=== PATIENT | male | born 1955 | race Caucasian/White ===

== ENCOUNTER 2024-09-23 06:31 | Inpatient (IN) | payer OTHER, SELFPAY ==
[2024-09-22 23:47] VITALS: BP 97/55
[2024-09-23] VITALS (46 sets, daily range): BP systolic 77–115; BP diastolic 47–84; BMI 22.7; BMI 22.9
[2024-09-23 00:30] LABS: % Basophils 0.1 % (0-2); % Eosinophils 0.6 % (0-6); % Immature Granulocytes 1.3 % (0-0.5); % Lymphocytes 0.7 % (20.5-51.1); % Monocytes 3.9 % (1.7-9.3); % Neutrophils 93.4 % (42.2-75.2); Absolute Eosinophils 0.1 10^3/uL (0-0.7); Absolute Immature Granulocytes 0.2 10^3/uL (0-0.05); Absolute Lymphocytes 0.1 10^3/uL (1.2-3.4); Absolute Monocytes 0.5 10^3/uL (0.1-0.6); Absolute Neutrophils 12.8 10^3/uL (1.4-6.5); Hematocrit 39.8 % (39.0-52.0); Hemoglobin 13.9 g/dL (13.0-18.0); Mean Corp Hgb Conc. 34.9 g/dL (33.0-37.0); Mean Corpuscular Hgb 31.8 pg (27.0-31.0); Mean Corpuscular Volume 91.1 fL (80.0-94.0); Mean Platelet Volume 9.9 fL (7.4-10.4); Nucleated Red Blood Cells % 0 % (-); Platelet Count 201 10^3/uL (130-400); Red Blood Cell Count 4.37 10^6/uL (4.70-6.10); Red Cell Dist. Width 13.1 % (11.5-14.5); White Blood Cell Count 13.8 10^3/uL (4.8-10.8)
[2024-09-23 00:34] LABS: ALT (SGPT) 39 U/L (0-50); AST (SGOT) 35 U/L (17-59); Alkaline Phosphatase 64 U/L (38-126); Blood Urea Nitrogen 41 mg/dl (9-20); Calcium 9.8 mg/dl (8.4-10.2); Carbon Dioxide 27 mmol/L (22-30); Chloride 100 mmol/L (98-107); Glucose 148 mg/dl (70-99); Lactic Acid 1.9 mmol/L (0.7-2.0); Sodium 134 mmol/L (135-145); Total Bilirubin 0.9 mg/dl (0.2-1.3); Total Protein 6.3 g/dl (6.3-8.2)
--- NOTE | 2024-09-23 01:45 | ED.GENMED ---
History of Present Illness
General
Chief Complaint: Fever
Source: patient and spouse
Exam Limitations: none
Time Seen by Provider: 09/23/24 01:19
Nursing documentation reviewed up to this point in time: agreed with
History of Present Illness
History of Present Illness:
69-year-old male with a past medical history of melanoma presents to the emergency department with his for evaluation of fever, nausea. Patient has significant recent history�he was diagnosed with melanoma in the left thigh and required
resection as well as lymph node sampling in the left groin�this procedure was done with surgical oncology at [facility] on 06/22/2024. He was started on Keytruda has completed 3 cycles, last treatment was 09/12/2024--he has generally been tolerating
this well without significant side effects. Unfortunately his postoperative course was complicated by cellulitis and abscess/seroma in the left thigh where he had resection of the melanoma. He was admitted at [facility] 09/01/2024 treated with IV
antibiotics and had incision and drainage; he had subsequent reaccumulation and a drain was placed 09/03/2024 and he was discharged with 7-day course of antibiotics which she completed. Drain has been putting out serosanguineous but no purulence and
remains in place today. He has not had significant pain or swelling in this area.
He presents today to the emergency room for fever and nausea as described above. He says that his symptoms started this morning at around 11 AM and have been constant throughout the day. He reports fever and chills throughout the day. He says he
has had nausea and poor appetite but no vomiting. No diarrhea. He has not had any abdominal pain. He says he has enlarged prostate and chronic urinary frequency but no acute change, no dysuria, no dark urine. He has had some myalgias and
arthralgias today. He says that he has had some congestion and mild postnasal drip but no significant cough, no sore throat. He denies any chest pain. He says he had some shortness of breath after hospitalization attributed to deconditioning. He
says that initially he went to the emergency room at [facility] but he says that the wait was very long and there was no place he could lay down while waiting. He says he started to get some pain in the back of his head which he says is very common
he has a long history of occipital neuralgia which tends to act up in situations like this. He left the emergency room at [facility] and decided to come here for evaluation.
Review of Systems
Review of Systems
All Other Systems: ROS reviewed and negative except as documented in HPI and ROS
Constitutional: Reports fever, fatigue and chills
EENT: Reports other (Congestion/postnasal drip); Denies sore throat
Respiratory: Denies cough or trouble breathing
Cardiac: Denies chest pain or palpitations
ABD/GI: Reports nausea; Denies abdominal pain, vomiting or diarrhea
: Denies dysuria or flank pain
Musculoskeletal: Reports muscle pain (Myalgias)
Neurological: Reports headache; Denies dizzy
Phy Exam
Physical Exam
Physical Exam:
General: Awake, alert, oriented x3; no acute distress
Head: Normocephalic, atraumatic
Eyes: Conjunctiva normal, sclera anicteric
Throat: Airway intact, handling secretions
Neck: Trachea midline, supple without meningismus
Lungs: Clear to auscultation bilaterally, no wheezing, rales, rhonchi
Heart: Regular rate and rhythm, no murmurs, gallops, or rubs
Abd: Soft, non distended, nontender
Neuro: No gross deficits
Skin: Patient has surgical scar left medial thigh as well as in the left inguinal region; he has a drain in place near the left thigh surgical site output serosanguineous; area near drain is indurated and firm, not significantly erythematous and
minimally tender to the touch; no crepitus
Extremities: Warm and well-perfused
Scores
Heart Failure Risk
Heart Failure Risk Score: Not Applicable
Heart Score for Chest Pain Patients
STEMI patient?: Not applicable
Withdrawal Assessment of Alcohol
Withdrawal Assessment Completed?: Not applicable
Sepsis
Sepsis Screening
Sepsis Assessment: Sepsis
Sepsis Screen
Sepsis Screen: Sepsis
Date: 09/23/24
Time: 03:10
Course
Orders/Labs/Results
Orders:
Orders
09/22/24 23:56
Complete Blood Count/With Diff Urgent
Comprehensive Metabolic Panel Urgent
Lactic Acid Q4H
Comment: ON ICE, CANCEL 2ND ORDER IF FIRST LACTIC ACID LEVEL <2
Blood Culture Q20M
CHASE Source: Blood/Venous
Specimen Description:
Comment: Urgent from separate sites. If patient screens positive for possible sepsis
09/23/24 01:40
CT Lower Ext W/iv Cont Lt Urgent
Comment:
Reason For Exam: fever, recent left thigh abscess and drain
09/23/24 01:41
Urinalysis Reflex To Culture Urgent
CR Chest - 2 Views Urgent
Comment:
Reason For Exam: fever
09/23/24 01:44
0.9% Sodium Chloride 1000 ml [Nss] 1,000 ml IV BOLUS
Ibuprofen [Motrin] 400 mg PO NOW STA
Ondansetron Injectable [Zofran] 4 mg IV NOW STA
09/23/24 02:26
COVID-19 Antigen Urgent
Source: Nasal Swab
Lactic Acid Q4H
Comment: ON ICE, CANCEL 2ND ORDER IF FIRST LACTIC ACID LEVEL <2
Blood Culture Q20M
CHASE Source: Blood/Venous
Specimen Description:
Comment: Urgent from separate sites. If patient screens positive for possible sepsis
Influenza A+B Rapid Molecular Urgent
CHASE Source: Nasal Swab
Specimen Description:
09/23/24 03:09
*Vancomycin 2,000 mg Loading Dose (consider for >/= 70 kg) Vancomycin [Vancocin] 2,000 mg 0.9% Sodium Chloride 500 ml [Nss] 500 ml IV NOW
Zosyn 3.375 grams IVPB NOW Piperacillin/Tazo 3.375 Gram [Zosyn] 3.375 gram in 50 ml IV NOW
Abnormal Lab Results
09/23/24
00:09
WBC 13.8 H 10^3/uL
(4.8-10.8)
RBC 4.37 L 10^6/uL
(4.70-6.10)
MCH 31.8 H pg
(27.0-31.0)
Abs Immat Gran (auto) 0.2 H 10^3/uL
(0-0.05)
Absolute Neuts (auto) 12.8 H 10^3/uL
(1.4-6.5)
Absolute Lymphs (auto) 0.1 L 10^3/uL
(1.2-3.4)
Immature Gran % 1.3 H %
(0-0.5)
Neutrophils % 93.4 H %
(42.2-75.2)
Lymphocytes % 0.7 L %
(20.5-51.1)
Sodium 134 L mmol/L
(135-145)
BUN 41 H mg/dl
(9-20)
Creatinine 1.5 H mg/dL
(0.7-1.3)
Glucose 148 H mg/dl
(70-99)
09/23/24 00:09
09/23/24 00:09
Vital Signs
Initial and Last Documented VS:
Initial Vital Signs
Temp Pulse Resp BP Pulse Ox
38.3 C H 88 24 97/55 99
09/22/24 23:47 09/22/24 23:47 09/22/24 23:47 09/22/24 23:47 09/22/24 23:47
Last Documented Vital Signs
Temp Pulse Resp BP Pulse Ox
38.3 C H 73 16 96/67 96
09/22/24 23:47 09/23/24 02:30 09/23/24 02:30 09/23/24 02:09 09/23/24 02:30
MDM/Problems Addressed
Differential Diagnosis Includes:
Fever: Viral syndrome (flu, COVID, etc), pneumonia, UTI, bacteremia, recurrent thigh/postsurgical infection
MDM/Problems Addressed:
69-year-old male with significant recent history as documented presents for evaluation of fever and chills associated with some nausea today as described above. Vitals and exam as above. Will place IV send labs including CBC CMP, lactate and blood
cultures. Swab for COVID and flu. Check urinalysis. Check chest x-ray. Will check a CT of the left leg to evaluate for drain position and recurrent abscess. Will treat fever and provide fluids. Zofran for nausea. Reassess after the above.
Labs reviewed: CBC shows leukocytosis to 13.8. CMP shows creatinine of 1.5�no baseline available for comparison. Lactate less than 2. COVID and flu negative. Chest x-ray reviewed by me shows no pneumonia. CT extremity pending but I think at
this point with multiple SIRS criteria in an immunocompromised patient will cover with broad-spectrum antibiotics admit pending blood cultures�concern for recurrent left thigh infection, also at risk for bacteremia with recent issues. Case
discussed with hospitalist for admission.
Chronic conditions affecting care:
Melanoma
*Radiology
Radiology exam reviewed: preliminary read by ED provider and radiology read reviewed
*Pulse Oximetry
Patient hypoxic: no
*Critical Care Note
Total Time (30-74mins, 75-104mins- exclusive of procedures): Not Applicable
Data Reviewed
Source: patient and spouse
Patient Management
Discussion with other providers: Hospitalist (Discussed with hospitalist)
Escalation/DeEscalation of care consider admission/obs:
Admission indicated
ED Attending Note
-
Portions of this chart may have been created with voice recognition software.� Occasional wrong word or��sound alike� substitutions may have occurred due to the inherent limitations of voice recognition software.
Discharge Plan
Departure
Patient Disposition: Admit
Date of Disposition: 09/23/24
Time of Disposition: 03:11
Admit to doctor: Tigre
Presentation/result/management discussed w/ accepting MD/DO: Hospitalist
Discharge Problem:
Fever, Cellulitis
Referrals:
NONE,* [Family Provider] -
Interventions
Interventions:
*Risk Screen - Suicide Last Done: 09/23/24 01:20
*General Assessment Last Done: 09/23/24 01:20
*Neglect/Abuse Screening Last Done: 09/23/24 01:20
*ED- Fall Risk Assessment Last Done: 09/23/24 01:20
*ED COVID-19 Vaccine History Last Done: 09/23/24 01:20
ED- Neurological Assessment Last Done: 09/23/24 01:20
ED-Skin Assessment Last Done: 09/23/24 01:20
Discharge Date and Time
Print Language: GEORGIAN
[2024-09-23] MEDS: MOTRIN 400 MG PO (01:56)
[2024-09-23] MEDS: ZOFRAN 4 MG IV ×2 (02:04→10:41)
[2024-09-23] MEDS: NSS 1000 IV ×2 (02:04→03:40)
[2024-09-23 02:56] LABS: Lactic Acid 1.4 mmol/L (0.7-2.0)
[2024-09-23 03:03] LABS: COVID-19 Antigen Negative (Negative)
[2024-09-23] MEDS: ZOSYN 50 IV ×4 (03:36→22:02)
[2024-09-23] MEDS: VANCOCIN 540 MG IV (04:50)
[2024-09-23 05:09] LABS: Urine Bilirubin Negative (Negative); Urine Color Yellow; Urine Glucose Negative (Negative); Urine Ketone Negative (Negative); Urine Leukocyte Negative (Negative); Urine Nitrite Negative (Negative); Urine Occult Blood Negative (Negative); Urine Urobilinogen Negative (Neg - 1+)
[2024-09-23 05:10] LABS: Urine Albumin Trace (Neg - Trace); Urine Character Clear (Clear)
--- NOTE | 2024-09-23 05:15 | HPS.HSE ---
Family Physician
-
Family Physician: * NONE
Chief Complaint
-
Fever
History of Present Illness
This is a 69-year-old with past medical history significant for skin melanoma status post extensive resection in June complicated by development of seroma complicated by recent cellulitis with infection and status post drainage placement who
presents to the emergency department now weight fever and chills and rigors.
Patient reported that he was last hospitalized for drainage placement about 16 days ago. Drain was placed and the patient was draining serosanguineous fluid. He has been draining about 20 cc of serosanguineous fluid since then. He has been
feeling well up until about 2 days ago when he had an episode of fever and chills. He took a dose of Tylenol and had complete resolution of symptoms. He saw his physician at [facility] today who evaluated him and said everything looks good but if
he had recurrent of the fevers and chills that she will head to the emergency department.
Patient reported that the evening prior to come to the ED he started having fevers and chills which was more persistent and had nausea. He had no vomiting. He denies any cough or shortness of breath. He denies any neck pain or stiffness. Patient
was was seen at [facility] emergency department but due to the prolonged wait there he brought himself to the [facility].
In the ED he had a temp of 101, blood pressure was initially 90s over 68 but trended down to 80 systolic pulse in the 70s. He was satting 96% on room air. White count was 13.8 with normal platelet and hemoglobin. Electrolytes were stable with a
sodium of 134 and potassium of 5.0 with a normal bicarb and chloride. BUN and creatinine were elevated at 41 and 1.5 respectively. Glucose was normal. Chest x-ray shows no acute infiltrates. Viral panel was negative. UA is negative.
Patient had a CT of the left lower extremity showing Collection containing fluid and gas overlying the left sartorius at the mid thigh level measuring about 5.6 x 2.4 x 10 cm, has a drainage catheter looped in 8 mostly collection is collapsed around
the loop, there is mild subcutaneous fat edema and skin thickening overlying the collection suspicious for cellulitis.
Medical History
Past Medical History
Past Medical History: Reports Cancer (Stage III melanoma status post biopsy and skin lesion excision with lymph node biopsy currently on Keytruda)
Past Surgical History: Reports Other (Skin cancer resection)
Social History
Tobacco: Non-smoker
Alcohol: Occasional
Drug: None
Personal:
Living: With Family
Employment: Retired
Family History
Family History: Not pertinent
Allergies / Home Medications
Allergies reflects when Allergies were last updated in [facility] [facility] [employer]
Home Medications with original date entered in [facility] [facility] [employer] [facility]
Allergy/Medication List:
Allergies
Allergy/AdvReac Type Severity Reaction Status Date / Time
No Known Allergies Allergy Unverified 09/22/24 23:47
No home medications
Review of Systems
-
History Source: Family
Constitutional: Reports Fever and Chills
EENT: Reports No Symptoms
Respiratory: Reports No Symptoms
Cardiac: Reports No Symptoms
Abdomen/GI: Reports Nausea
: Reports No Symptoms
Musculoskeletal: Reports No Symptoms
Skin: Reports No Symptoms
Neurological: Reports No Symptoms
Endocrine: Reports No Symptoms
Hematologic/Lymphatic: Reports No Symptoms
Psych: Reports No Symptoms
Physical Exam
Vital Signs
Vital Signs
Temp Pulse Resp BP Pulse Ox
98.3 F 62 14 96/67 100
09/23/24 04:53 09/23/24 04:30 09/23/24 04:30 09/23/24 02:09 09/23/24 04:30
Physical Exam
General: Well Developed, Well Nourished, Comfortable and Conversant
HEENT: NormoCephalic, Anicteric, Moist mucous membranes and Atraumatic
Respiratory: Clear
Cardiac: S1/S2 and Regular Rhythm
Breast: Deferred by me
GI: Soft, Non Tender, Non Distended and Normal Bowel Sounds
Rectal: Deferred by Provider
Musculoskeletal: Clubbing
Skin: Other (Left medial thigh JUSTYN drain site C/D/I. No erythema. No obvious fluid collection seen superficially. NO TTP)
Neuro: AO x 3, No Motor Deficits and Nonfocal/grossly intact
Hematologic/Lymphatic: No Lymphadenopathy
Psych: Calm
Laboratory Results
-
09/23/24 00:09
09/23/24 00:09
Laboratory Results
Lactic Acid 1.4 mmol/L (0.7-2.0) 09/23/24 02:26
Total Bilirubin 0.9 mg/dl (0.2-1.3) 09/23/24 00:09
AST 35 U/L (17-59) 09/23/24 00:09
ALT 39 U/L (0-50) 09/23/24 00:09
Alkaline Phosphatase 64 U/L (38-126) 09/23/24 00:09
Data Reviewed
-
Diagnostic Radiology: Image Personally Visualized and interpreted
CT Scan: Report Reviewed by me
Lab Data: Labs Reviewed by me
Old Records: Reviewed
Impression/Plan
-
IMPRESSION:
Patient is a 69 y.o with skin melanoma s/p resection in june with recent skin cellulitis and abscess/seroma requiring drainage placement about 16 days ago. He reported episode of cellulitis and abscess drainage in august at [facility] to
drainage placement. He was on IV abx but ultimately sent home on bactrim which he completed the course. He is now here with fever, hypotension and source so far appears to be the drain. The fluid being drain appears serosanguinous.
PLAN:
1. Fever/Sepsis
- admit to IMU
- blood cultures sent
- check fluid culture
- catheter still draining well but collection remains on CT scan, fluid is serosanguinous
- surgical consult
- continue Vanc/Zosyn
- obtain prior cultures from [facility] in am
- ID consultation
DVT PPX - lovenox sq
Code status - Full code
[2024-09-23] MEDS: NSS 500 IV (05:29)
[2024-09-23] MEDS: LEVOPHED 250 IV (05:35)
--- NOTE | 2024-09-23 06:59 | PTCARENOTE ---
@ attempts to call for report no answer
--- NOTE | 2024-09-23 07:10 | PTCARENOTE ---
report from ED
[2024-09-23 07:35] LABS: Body Fluid WBC 262 /CUMM
[2024-09-23 07:36] LABS: Body Fluid Granulocytes 78 %; Body Fluid Lymphocytes 22 %
[2024-09-23 08:02] LABS: Body Fluid Reviewed Results P; Body Fluid Second Tech CMB
--- NOTE | 2024-09-23 08:05 | PTCARENOTE ---
Pt brought [facility] , AAOx3, needs to have BM walked to [facility] with nurse and stayed with him as he is on Levo
--- NOTE | 2024-09-23 08:21 | PHA.VAN.IN ---
Assessment
- Assessment
Renal Function: Unknown baseline
Concomitant Antimicrobials: piperacillin/tazobactam
Plan
- Plan
Initial / Loading Dose: 2000mg - 09/23 04:50
Maintenance Regimen: dosing by level
Monitoring: random 09/24 0600
Pharmacokinetics Vancomycin I
- -
Patient Age: 69
Patient Sex: Male
Vancomycin Day #: 1
Indication: Skin And Soft Tissue
Requesting Provider: Dr. Landeros
Pertinent Antimicrobial Allergies:
NKDA
Height / Weight:
Height 6 ft
Actual Weight 76 kg
Pertinent Past Medical History: skin melanoma
- Vital Signs / Lab Results
Temp Pulse Resp BP Pulse Ox
98.3 F 70 16 98/59 97
09/23/24 04:53 09/23/24 07:45 09/23/24 07:45 09/23/24 07:45 09/23/24 07:45
Lab Results - Hematology
09/23/24
00:09
WBC 13.8 H
Lab Results - Chemistry
09/23/24
00:09
BUN 41 H
Creatinine 1.5 H
Albumin 4.0
09/23/24 09/23/24
00:09 02:26
Lactic Acid 1.9 1.4
Lab Results - Urine
09/23/24
05:02
Urine Nitrite (Reflex) Negative
Leukocyte Esterase Rfl Negative
Microbiology Results
09/23/24 02:26 Influenza Types A & B ([facility]) - Final
Nasal Swab Negative for Influenza A & B, NAAT
Negative results must be combined with clinical observations
and patient history.
Nucleic Acid Amplification test (NAAT)performed on the
[employer] platform.
--- NOTE | 2024-09-23 08:47 | PTCARENOTE ---
Pt had small BM. Pleasant and cooperative Pt does not have a PCP. Pt states he has been very tired and takes caffeine pills twice a day to stay awake. Also states he has trouble keeping weight on, attempts to eat high protein and complex carbs. Pt
feels nauseated and getting PARISI , tt DR Llanos
--- NOTE | 2024-09-23 08:53 | PTCARENOTE ---
Pt has JUSTYN drain L thigh that was emptied for 20 cc in ER and sent to lab
--- NOTE | 2024-09-23 09:31 | CON.GS ---
Addendum entered and electronically signed by Contreras Chavarria MD 09/23/24 11:38:
Patient seen and examined.
Mr Hensley is a 69 yo male with a h/o melanoma of the left thigh with skin resection June 22, 2024 with lymph nodes taken from the groin. He reports that as one lymph node was positive, he was started on Keytruda and received his 3rd dose on September
3. He developed edema to the left thigh incision in August with seroma noted. Initially, he underwent drainage by aspiration as an outpatient, but fluid recollected and an IR drain was placed a little over 2 weeks ago for management. He reports a
hospital stay of about 3 days around that time for IV antibiotics with oral abx upon discharge. He follows with Dr. Spring Saleh at [facility] for his cancer care. He was feeling generally well, but about 2 days ago, he developed nausea with
chills/sweats. He denies diarrhea and notes his last BM was 2 days ago. He was asked to present to the ED by his Oncologist and initially went to the ED at [facility], but as the ED was busy, he left and came to instead. He was febrile to
101 on presentation and hypotensive. He is currently on the IMU on pressor agent. He denies any worsening pain to his leg. No erythema or skin breakdown. He continues to maintain his drain and flush daily.
Gen: NAD
LLE: incision well healed, no erythema, minimal scar/induration, non-tender, no clearly palpable fluid collection, IR drain with minimal serosang outputs, insertion site c/d/i
Mr Hensley is a 69 yo M with stage III melanoma of the LLE s/p wide excision with SLND in 06/22/2024 following at [facility] with Dr. Spring Saleh. POsitive LN currently on Keytruda and received his 3rd dose on September 12. Post-op infected seroma/hematoma
managed with IR drain and antibiotics at [facility]. Presenting with fevers, nausea, and general malaise.
No clinical signs of worsening infection. No need for surgical management.
-- No indications or plans for surgical management
-- If continues to need hospital care would consider transfer back to [facility]
-- Please call with questions or concerns
Original Note:
Consultation
-
Date/Time Consultation Requested: 09/23/24805
Requesting Provider: [facility]
Performing Provider: Evangelist Chavarria
Reason for Consultation: thigh abscess
Medical History
-
Chief Complaint: fevers
History of Present Illness:
Mr Hensley is a 69 yo male with a h/o melanoma of the left thigh with skin resection June 22, 2024 with lymph nodes taken from the groin. He reports that as one lymph node was positive, he was started on Keytruda and received his 3rd dose on September
3. He developed edema to the left thigh incision in August with seroma noted. Initially, he underwent drainage by aspiration as an outpatient, but fluid recollected and an IR drain was placed a little 2 weeks ago for management. He reports a
hospital stay of about 3 days around that time for IV antibiotics with oral abx upon discharge. He follows with Dr. Spring Saleh at [facility] for his cancer care. He was feeling generally well, but about 2 days ago, he developed nausea with
chills/sweats. He denies diarrhea and notes his last BM was 2 days ago. He was asked to present to the ED by his oncologist and initially went to the ED at [facility], but as the ED was busy, he left and came to instead. He was febrile to
101 on presentation and hypotensive. He is currently on the IMU on pressor agent. His left thigh incision is well healed with drain next to incision with serous fluid noted. There is induration around the incision. He reports erythema [employer] which was
significant, but only mild erythema currently present. The counter incision in the left groin is without erythema, edema or induration.
Past Medical History
Past Medical History: Cancer (stage III melanoma of the left thigh, on Keytruda)
Past Surgical History: Other (Left thigh skin removal for melanoma with lymph nodes taken from groin. )
Social History
Tobacco: Non-Smoker
Personal:
Living: With Family
Family History
Family History: Reviewed & Not Pertinent
Allergies / Home Medications
Allergy/AdvReac Type Severity Reaction Status Date / Time
No Known Allergies Allergy Unverified 09/22/24 23:47
�Medication �Instructions �Recorded �Confirmed �Type
ibuprofen 200 mg tablet (Advil) 400 mg PO DAILYPRN PRN mild pain 09/23/24 09/23/24 History
therapeutic multivitamin 1 tab PO DAILY 09/23/24 09/23/24 History
Review of Systems
-
History Source: Patient and Family
All other systems: Negative unless noted
A 10 point review of systems was completed, and was negative except as per HPI.
Physical Exam
Vital Signs
Temp Pulse Resp BP Pulse Ox
98.5 F 70 16 98/59 98
09/23/24 08:10 09/23/24 07:45 09/23/24 07:45 09/23/24 07:45 09/23/24 08:53
09/22/24 09/23/24 09/24/24
06:59 06:59 06:59
Actual Weight 76 kg 76.5 kg
Body Mass Index (BMI) 22.9
Lab Results
09/23/24 00:09
09/23/24 00:09
WBC 13.8 10^3/uL (4.8-10.8) H 09/23/24 00:09
Hgb 13.9 g/dL (13.0-18.0) 09/23/24 00:09
Hct 39.8 % (39.0-52.0) 09/23/24 00:09
Plt Count 201 10^3/uL (130-400) 09/23/24 00:09
Abs Immat Gran (auto) 0.2 10^3/uL (0-0.05) H 09/23/24 00:09
Neutrophils % 93.4 % (42.2-75.2) H 09/23/24 00:09
Physical Exam
General: Well Developed and Well Nourished
HEENT: Moist Mucous Membranes
Respiratory: Non Labored Respirations
GI: Soft, Non Tender and Non Distended
Skin: Other (Left thigh with healed incision, mild erythema to middle portion. Induration under incision. Drain in place with serous fluid.)
Neuro: Awake, Alert and AO x 3
Psych: Calm
Data Reviewed
-
CT Scan: Image Personally Visualized and interpreted, Report Reviewed by me, Discussed with Physician and Discussed with Patient
Labs: Labs Reviewed by me, Discussed with Physician and Discussed with Patient
Old Records: Requested
Assessment / Plan
-
Mr Hensley is a 69 yo male following at [facility] wt Dr. Spring Saleh for stage III melanoma of the left thigh with skin resection June 22, 2024 with lymph nodes taken from the groin, currently on Keytruda and received his 3rd dose on September 12. He
developed edema to the left thigh incision in August with seroma noted. Initially, he underwent drainage by aspiration as an outpatient, but fluid recollected and an IR drain was placed a little over 2 weeks ago for management. He reports a
hospital stay of about 3 days around that time for IV antibiotics with oral abx upon discharge.
He presents for fevers, chills and nausea with hypotension and is currently on pressors in the IMU. CT imaging with abscess present with drain within the collection. He has noted leukocytosis and has been initiation on IV ABX. Records from [facility] are
pending.
--Consider transfer back to [facility] where his primary oncology team is located
--Continue drain/abx
--No plans for operative intervention
--- NOTE | 2024-09-23 09:50 | PTCARENOTE ---
Pt now vomiting and has a bad hook awaiting Dr Llanos
[2024-09-23] MEDS: TYLENOL 650 MG PO (10:41)
--- NOTE | 2024-09-23 11:24 | CON.ID ---
Addendum entered and electronically signed by Chung Cates DO 09/23/24 14:34:
I personally performed a history and physical exam of the patient and discussed management with the resident. I reviewed the resident's note and agree with the documented findings and plan of care HPI/CC.
Original Note:
Consultation
-
Date/Time Consultation Requested: 09/23/24
Date/Time Consultation Performed: 09/23/24
Requesting Provider: Dr Chung Cates
Performing Provider: Dr Helder Blanco
Reason for Consultation: fever, chills
Chief Complaint / Past History
Chief Complaint
fever, chills
History of Present Illness
69-year-old male with recently diagnosed melanoma stage III on left thigh with skin resection in June 2024 presented to the ED with fever and chills. Patient states that he had a lymph node biopsy from the groin which showed positive for
melanoma. He was started on Keytruda and he received his third dose on September 12. He reports of developing edema in the left thigh around the incision site in August and was noted to have a cyst. His cyst was drained outpatient at [facility], he
was sent home on oral antibiotics (cannot recall the name). The next day he had left thigh pain and swelling. He returned to [facility] where he was hospitalized for 2 days, started on IV antibiotics with site draining serosanguineous fluid. He
was discharged on 09/05/[address] and sent home on oral antibiotics.
He was feeling well up until 2 days ago when he had episode of fever and chills he took Tylenol and had complete resolution of symptoms. He then saw his physician at [facility] and he was reassured about his symptoms. He was also told that if he
had recurrent fever and chills he had to go to the ED. On the same day he had fever plus chills. He went to [facility] but due to the long wait, he left and came to ED. He denies vomiting, shortness of breath.
In the ED patient was febrile with temp of 101, hypotension, leukocytosis 13.8 with left shift. He was started on zosyn and vancomycin in ED. He was also started on Levophed and was admitted to the IMU. Right now he reports of unilateral
throbbing headache in the occipital area with nausea and rigors.
Past History
Additional Past Medical History:
Stage III melanoma and left thigh s/p biopsy and skin lesion excision
Additional Past Surgical History:
Melanoma resection in left thigh
Allergy History:
No Known Allergies Allergy (Unverified 09/22/24 23:47)
Medications Reviewed: Yes
Current Antibiotics:
Zosyn
Vancomycin
Social History
Tobacco: Non-Smoker
Alcohol: None
Drug: None
Personal:
Living: With Family
Employment: Retired
Family History
Family History: Not Pertinent
Review of Systems
Vital Signs
Temp Pulse Resp BP Pulse Ox
98.5 F 62 16 102/57 98
09/23/24 08:10 09/23/24 10:00 09/23/24 09:00 09/23/24 10:00 09/23/24 10:00
Physical Exam
Physical Exam
Constitutional: No Acute Distress and Other (Uncomfortable, rigors)
Head: Normocephalic
Eyes: Pupils Equal and Pupils Round
Cardiovascular: Regular Rate and S1/S2; Negative S3/S4
Pulmonary: Clear and Non Labored
Gastrointestinal: Soft, Non Tender, Non Distended and Normal Bowel Sounds
Extremities: Edema; Negative Cyanosis or Erythema
Wound: Other (Left thigh-healed incision, minimal erythema around incision and medial thigh, drain in place with serous fluid. No tenderness.)
Neurological: AO x 3
Psychological: Calm
Lab / Diagnostic Study Results
09/23/24 00:09
09/23/24 00:09
Abs Immat Gran (auto) 0.2 10^3/uL (0-0.05) H 09/23/24 00:09
Absolute Neuts (auto) 12.8 10^3/uL (1.4-6.5) H 09/23/24 00:09
Absolute Lymphs (auto) 0.1 10^3/uL (1.2-3.4) L 09/23/24 00:09
Absolute Monos (auto) 0.5 10^3/uL (0.1-0.6) 09/23/24 00:09
Absolute Basos (auto) 0.0 10^3/uL (0-0.2) 09/23/24 00:09
Immature Gran % 1.3 % (0-0.5) H 09/23/24 00:09
Neutrophils % 93.4 % (42.2-75.2) H 09/23/24 00:09
Lymphocytes % 0.7 % (20.5-51.1) L 09/23/24 00:09
Monocytes % 3.9 % (1.7-9.3) 09/23/24 00:09
Eosinophils % 0.6 % (0-6) 09/23/24 00:09
Basophils % 0.1 % (0-2) 09/23/24 00:09
Lactic Acid 1.4 mmol/L (0.7-2.0) 09/23/24 02:26
Microbiology Results
Micro:
09/23/24 06:22 Body Fluid Culture - Pending
Cyst Gram Stain - Preliminary
09/23/24 02:26 Influenza Types A & B (SHAE) - Final
Nasal Swab Negative for Influenza A & B, NAAT
Negative results must be combined with clinical observations
and patient history.
Nucleic Acid Amplification test (NAAT)performed on the
[employer] platform.
09/23/24 02:26 Blood Culture - Pending
Blood/Venous
09/23/24 00:09 Blood Culture - Pending
Blood/Venous
Imaging
Lower extremity CT scan 09/23/24- mild surrounding edema in left thigh with abnormal collection in percutaneous drain.
Chest x ray 09/23/24- No acute cardiopulmonary abnormality.
Assessment / Plan
Fever with chills and rigors
Hypotension - now on levophed
Melanoma of left thigh
-s/p resection (Jun 2024)
Plan
Although afebrile, patient with leukocytosis and hypotension concerning for clinical sepsis
Although drain could the source does not appear actively infected.
Continue IV broad spectrum abx- zosyn and vanc.
Follow vanco levels to prevent nephrotoxicity.
Await blood and fluid cultures.
Monitor WBC and temp curve.
Further recommendation as additional data is returned.
[2024-09-23] MEDS: COMPAZINE 5 MG IV (11:35)
[2024-09-23] MEDS: FLEXERIL 5 MG PO (12:37)
--- NOTE | 2024-09-23 13:01 | CM ---
Patient with Hx skin melanoma s/p resection with recent skin cellulitis and abscess/seroma requiring drain, with Dx sepsis. Room air. Receiving Levophed gtt, IV Abx, IV Zofran prn, IV Compazine prn. Per nurse; JUSTYN drain left thigh.
Met with patient who resides with his in a 2 story house with 3 BHAVYA.
He was independent in ADLs and ambulation at home without using an assistive device.
DME left over from his parent - RW, SPC, w/c
No prior VN or SNF.
PCP - has none, uses Urgent Care in [place]
Pharmacy - [facility]
CM COnsult: (no reason entered for consult)
Spoke with nurse Shipman; consult was for advanced directive.
Offered patient Advanced Directive Forms and he declined, saying he would not complete it.
Patient reports he was wobbly on his feet when OOB today.
Patient may benefit from PT Eval ---> message to Dr Llanos who responded: once he is off pressors and not septic.
Plan follow patient's mobility.
Plan offer VN if drain in place at discharge.
--- NOTE | 2024-09-23 14:38 | PTCARENOTE ---
Pt now resting comfortably no co seen by ID
[2024-09-23] MEDS: TYLENOL 1000 MG PO (16:36)
--- NOTE | 2024-09-23 16:38 | W.PN.UPDATE ---
Update Note
Progress Note Update
Headache nausea vomiting. Improved with Zofran and acetaminophen. Motrin typically helps however has a creatinine of 1.5.
NAD
Scleral Anicteric
MMM
No JVD
CTABL
RRR, S1/S2
Soft, NT, ND, BS+
Warm, Dry
-Left inner thigh with drain that is draining serosanguineous fluid. Incision line looks like it is healing without erythema drainage tenderness
AAOx3
Calm
Sepsis/septic shock s/p 30 cc/kg. Unclear as to source. Recently treated for cellulitis with abscess of the left lower extremity s/p IR drain with serosanguineous fluid. Remain refractory now on Levophed. Continue broad-spectrum IV antibiotics
with Zosyn and vancomycin. Follow vancomycin trough levels/dose per pharmacy. Follow-up on culture data. ID following.
SAURAV versus CKD, do not have a baseline, potentially ischemic ATN, will check renal bladder ultrasound and urine studies avoid any nephrotoxins hypotension
Neck pain likely muscle spasm in the setting of nausea vomiting. He does have a headache however low clinical suspicion for meningitis at this time as there is no evidence of meningismus. Continue Flexeril increased dose as needed start oxycodone.
If still with discomfort then initiate Valium low-dose.
Hyponatremia, repeat BMP in the a.m. Expect to improved after receiving 2500 cc of IV fluids.
[2024-09-23] MEDS: LOVENOX SC (17:13)
[2024-09-23] MEDS: ROXICODONE 5 MG PO (17:39)
[2024-09-23] MEDS: FLEXERIL 10 MG PO (22:01)
[2024-09-23 22:49] LABS: Urine Albumin 2+ (Neg - Trace); Urine Bilirubin Negative (Negative); Urine Character Clear (Clear); Urine Color Yellow; Urine Glucose Negative (Negative); Urine Ketone Negative (Negative); Urine Leukocyte Negative (Negative); Urine Nitrite Negative (Negative); Urine Occult Blood Negative (Negative); Urine Urobilinogen Negative (Neg - 1+)
[2024-09-23 22:52] LABS: Urine Bacteria Few (Negative); Urine Red Blood Cell 0-2 /HPF (0-2); Urine Squamous Cell 0-2 /LPF (Few)
[2024-09-23 23:08] LABS: Urine Protein 6 mg/dl; Urine Sodium 39 mmol/L (30-90)
[2024-09-24] VITALS (25 sets, daily range): BP systolic 88–119; BP diastolic 55–79; BMI 23.0
[2024-09-24] MEDS: TYLENOL 1000 MG PO ×3 (00:05→17:26)
[2024-09-24] MEDS: ROXICODONE 5 MG PO ×3 (03:38→20:31)
[2024-09-24] MEDS: ZOSYN 50 IV ×4 (03:39→21:21)
[2024-09-24 05:06] LABS: Hematocrit 32.5 % (39.0-52.0); Hemoglobin 11.2 g/dL (13.0-18.0); Mean Corp Hgb Conc. 34.5 g/dL (33.0-37.0); Mean Corpuscular Hgb 31.6 pg (27.0-31.0); Mean Corpuscular Volume 91.8 fL (80.0-94.0); Mean Platelet Volume 10.1 fL (7.4-10.4); Platelet Count 135 10^3/uL (130-400); Red Blood Cell Count 3.54 10^6/uL (4.70-6.10); Red Cell Dist. Width 13.3 % (11.5-14.5); White Blood Cell Count 4.5 10^3/uL (4.8-10.8)
[2024-09-24 05:54] LABS: Vancomycin Random < 5.0 ug/ml
--- NOTE | 2024-09-24 05:54 | PTCARENOTE ---
Pt able to get some sleep last night with pain medication. Pt was having complaints of neck/base of skull pain, unsure of what causes it. Pt off Levo and vitals are stable at this time. POTLINE MONITOR made aware. Call rubio within reach.
--- NOTE | 2024-09-24 06:52 | W.PN.UPDATE ---
Update Note
Progress Note Update
-Critical value received/reported by RN. Fluid cx, left thigh seroma. Preliminary WBC seen, rare gram positive cocci. ID previously consulted. IV antibiotics per ID.
~ 3 am, pt off levophed gtt. BP�
[2024-09-24] MEDS: FLEXERIL 10 MG PO ×2 (08:10→17:27)
--- NOTE | 2024-09-24 09:02 | W.PN.ID1 ---
Date of Service
Date of Service: September 24, 2024
Today's Communication
Continue IV broad spectrum abx- zosyn and vanc.
Assessment / Plan
Fever with chills and rigors - resolved
Septic Shock - resolved
Melanoma of left thigh
-s/p resection (Jun 2024)
Plan
Although drain could the source does not appear actively infected.
Drain culture with GPCs on the gram stain
Continue IV broad spectrum abx- zosyn and vanc.
Follow vanco levels to prevent nephrotoxicity.
Await blood and fluid cultures.
Monitor WBC and temp curve.
Further recommendation as additional data is returned.
Chief Complaint
-: Fever
Subjective / Review of Systems
afebrile
bp overall stable now off of pressors
some vomiting yesterday am
posterior headache
no other events overnight
Vital Signs / Physical Exam
Vital Signs
Vital Signs
Temp Pulse Resp BP Pulse Ox
98 F 60 18 114/67 96
09/24/24 03:00 09/24/24 06:00 09/24/24 06:00 09/24/24 06:00 09/24/24 06:00
Physical Exam
Constitutional: No Acute Distress
Cardiovascular: Regular Rate and S1/S2; Negative Murmur or Rub
Pulmonary: Clear and Symmetric; Negative Wheezes or Rales
Gastrointestinal: Soft, Non Tender, Non Distended and Normal Bowel Sounds
Skin: Warm and Dry; Negative Rash or Jaundice
Lines: Other (drain no surrounding erythema, warmth or tenderness; there is minimal induration along the healed suture line)
Objective Data
Lab Data
Lab Results
09/24/24 04:34
09/23/24 00:09
Lactic Acid 1.4 mmol/L (0.7-2.0) 09/23/24 02:26
Total Bilirubin 0.9 mg/dl (0.2-1.3) 09/23/24 00:09
AST 35 U/L (17-59) 09/23/24 00:09
ALT 39 U/L (0-50) 09/23/24 00:09
Alkaline Phosphatase 64 U/L (38-126) 09/23/24 00:09
Most recent labs reviewed.
wbc initially 14 now 4.5
hgb 11.2
plt 135
L shift is noted
cr 1.5 on arrival - unknown baseline
UA negative
Micro Results:
09/23/24 02:26 Blood Culture - Preliminary
Blood/Venous No Growth in 24 hours- Final report to follow
09/23/24 00:09 Blood Culture - Preliminary
Blood/Venous No Growth in 24 hours- Final report to follow
09/23/24 14:48 MRSA Screen - Pending
Nose
09/23/24 06:22 Body Fluid Culture - Pending
Cyst Gram Stain - rare GPCs
09/23/24 02:26 Influenza Types A & B (SHAE) - Final
Nasal Swab Negative for Influenza A & B, NAAT
Negative results must be combined with clinical observations
and patient history.
Nucleic Acid Amplification test (NAAT)performed on the
[employer] platform.
Imaging
Lower extremity CT scan 09/23/24- mild surrounding edema in left thigh with abnormal collection in percutaneous drain.
Chest x ray 09/23/24- No acute cardiopulmonary abnormality.
[2024-09-24] MEDS: VANCOCIN 275 MG IV (10:40)
--- NOTE | 2024-09-24 12:54 | PHA.VAN.FU ---
Vancomycin Assessment / Plan
- Assessment
Renal Function: No New Labs Today
WBC's are: Trending Down
In the past 24 hrs, patient has been: Afebrile
Concomitant Antimicrobials: PIPERACILLIN/TAZOBACTAM
- Assessment - Therapeutic Drug Monitoring
Random Level: <5 - DRAWN ~24 HOURS AFTER LAST PREVIOUS DOSE OF 2000MG
- Dosing Plan
Dosing by Level: Re-dose today (VANCO 1250MG @0900 AND VANCO 1000MG @1800)
- Monitoring Plan
Random Level: 3/16 @0600
- Follow Up
Pharmacy will continue to follow.
Vancomycin Follow UP
- -
Patient Age: 69
Patient Sex: Male
Vancomycin Day #: 2
Indication: Skin And Soft Tissue
Requesting Provider: Dr. Landeros
Pertinent Antimicrobial Allergies:
NKDA
Height / Weight:
Height 6 ft
Actual Weight 76.8 kg
Pertinent Past Medical History: skin melanoma
- Vital Signs / Lab Results
Temp Pulse Resp BP Pulse Ox
99.0 F 59 13 98/68 96
09/24/24 07:03 09/24/24 12:00 09/24/24 12:00 09/24/24 12:00 09/24/24 12:31
Lab Results - Hematology
09/23/24 09/24/24
00:09 04:34
WBC 13.8 H 4.5 L
Lab Results - Chemistry
09/23/24
00:09
BUN 41 H
Creatinine 1.5 H
Albumin 4.0
09/23/24 09/23/24
00:09 02:26
Lactic Acid 1.9 1.4
Lab Results - Urine
09/23/24 09/23/24
22:31 22:31
Urine Nitrite (Reflex) Negative
Leukocyte Esterase Rfl Negative
Urine WBC Cancelled
Ur Squamous Epith Cells Cancelled 0-2
Urine Bacteria Cancelled
Microbiology Results
09/23/24 06:22 Body Fluid Culture - Preliminary
Cyst Gram Stain - Preliminary
09/23/24 02:26 Blood Culture - Preliminary
Blood/Venous No Growth in 24 hours- Final report to follow
09/23/24 00:09 Blood Culture - Preliminary
Blood/Venous No Growth in 24 hours- Final report to follow
09/23/24 02:26 Influenza Types A & B (SHAE) - Final
Nasal Swab Negative for Influenza A & B, NAAT
Negative results must be combined with clinical observations
and patient history.
Nucleic Acid Amplification test (NAAT)performed on the
[employer] platform.
Therapeutic Drug Monitoring
Random Vancomycin < 5.0 ug/ml 09/24/24 04:34
--- NOTE | 2024-09-24 13:54 | W.PN.HOSP.TC ---
Today's Communication/Plan
-
Assessment / Plan
Assessment / Plan
NAD
Scleral Anicteric
MMM
No JVD
CTABL
RRR, S1/S2
Soft, NT, ND, BS+
Warm, Dry
-Left inner thigh with drain that is draining serosanguineous fluid. Incision line looks like it is healing without erythema drainage tenderness
AAOx3
Calm
Sepsis/septic shock s/p 30 cc/kg. Unclear as to source. Recently treated for cellulitis with abscess of the left lower extremity s/p IR drain with serosanguineous fluid. Remain refractory now on Levophed. Continue broad-spectrum IV antibiotics
with Zosyn and vancomycin. Follow vancomycin trough levels/dose per pharmacy. Wound culture rare gram-positive cocci. Blood cultures no growth to date. ID following
SAURAV versus CKD, do not have a baseline, potentially ischemic ATN, will check renal bladder ultrasound and urine studies avoid any nephrotoxins hypotension
Neck pain likely muscle spasm in the setting of nausea vomiting. He does have a headache however low clinical suspicion for meningitis at this time as there is no evidence of meningismus.
Continue Flexeril increased dose as needed start oxycodone. -Improved significantly on this combination
If still with discomfort then initiate Valium low-dose.
Hyponatremia, repeat BMP in the a.m. Expect to improved after receiving 2500 cc of IV fluids.
Anticipated Discharge: > 48 hours
Subjective/Interval History
-
Date of Service: September 24, 2024
seen and examined
no new complaints
no acute overnight events
States that he feels significantly better. Neck spasm and headache has completely resolved after increasing dose of Flexeril and oxycodone
Objective Data
-
Labs:
Laboratory Results
09/24/24
04:34
WBC 4.5 L
Hgb 11.2 L
Hct 32.5 L
Plt Count 135 D
Vital Signs:
Vital Signs
Temp Pulse Resp BP Pulse Ox
98.5 F 59 13 98/68 96
09/24/24 11:18 09/24/24 12:00 09/24/24 12:00 09/24/24 12:00 09/24/24 12:31
I&O
09/23/24 09/24/24 09/25/24
06:59 06:59 06:59
Intake Total 500 / 500
Output Total 1000 / 1000 400 / 400
Balance -500 / -500 -400 / -400
[2024-09-24] MEDS: LOVENOX 40 MG SC (18:39)
[2024-09-24] MEDS: VANCOCIN 200 IV (18:40)
[2024-09-25] VITALS (20 sets, daily range): BP systolic 99–134; BP diastolic 60–93
[2024-09-25] MEDS: MOTRIN 600 MG PO (01:33)
[2024-09-25] MEDS: VALIUM 2 MG PO ×2 (02:40→11:37)
[2024-09-25] MEDS: ZOSYN 50 IV ×2 (03:59→10:03)
[2024-09-25 05:10] LABS: Hematocrit 35.7 % (39.0-52.0); Hemoglobin 12.1 g/dL (13.0-18.0); Mean Corp Hgb Conc. 33.9 g/dL (33.0-37.0); Mean Corpuscular Hgb 31.3 pg (27.0-31.0); Mean Corpuscular Volume 92.2 fL (80.0-94.0); Mean Platelet Volume 10.2 fL (7.4-10.4); Platelet Count 145 10^3/uL (130-400); Red Blood Cell Count 3.87 10^6/uL (4.70-6.10); Red Cell Dist. Width 13.3 % (11.5-14.5); White Blood Cell Count 4.2 10^3/uL (4.8-10.8)
[2024-09-25 05:36] LABS: Blood Urea Nitrogen 20 mg/dl (9-20); Calcium 8.8 mg/dl (8.4-10.2); Carbon Dioxide 26 mmol/L (22-30); Chloride 102 mmol/L (98-107); Estimated Creatinine Clearance 70 ml/min; Glucose 87 mg/dl (70-99); Potassium 4.4 mmol/L (3.5-5.1); Sodium 137 mmol/L (135-145); Vancomycin Random 10.4 ug/ml; eGFR > 60.00
--- NOTE | 2024-09-25 05:47 | PTCARENOTE ---
Pt having complaint of 10/10 head pain after pain medication given. Pt informing RN head pain is worse and not understanding 'why medication did not work'. Warm compress applied to area on back of head as requested, neuro check done, unremarkable.
Night BEATER ENGINEER informed order placed for Valium with positive result. Pt pain now at a 2/10.
[2024-09-25] MEDS: ROXICODONE 5 MG PO (07:42)
--- NOTE | 2024-09-25 08:05 | PHA.VAN.FU ---
Vancomycin Assessment / Plan
- Assessment
Renal Function: SCR Decreasing
WBC's are: Stable
In the past 24 hrs, patient has been: Afebrile
Concomitant Antimicrobials: PIPERACILLIN/TAZOBACTAM
- Assessment - Therapeutic Drug Monitoring
Random Level: 10.4 - DRAWN ~10 HRS AFTER PREVIOUS DOSE OF 1000MG
- Dosing Plan
Adjust Regimen to: VANCO 1250MG Q12 (BASED ON LINEAR KINETICS TO PREDICT A TROUGH 12.5)
- Monitoring Plan
No level(s) ordered at this time: CONSIDER LEVEL IN NEXT FEW DAYS
- Follow Up
Pharmacy will continue to follow.
Vancomycin Follow UP
- -
Patient Age: 69
Patient Sex: Male
Vancomycin Day #: 3
Indication: Skin And Soft Tissue
Requesting Provider: Dr. Landeros
Pertinent Antimicrobial Allergies:
NKDA
Height / Weight:
Height 6 ft
Actual Weight 76.8 kg
Pertinent Past Medical History: skin melanoma
- Vital Signs / Lab Results
Temp Pulse Resp BP Pulse Ox
98.1 F 67 17 108/67 97
09/25/24 07:18 09/25/24 04:00 09/25/24 04:00 09/25/24 04:00 09/24/24 19:55
Lab Results - Hematology
09/23/24 09/24/24 09/25/24
00:09 04:34 04:48
WBC 13.8 H 4.5 L 4.2 L
Lab Results - Chemistry
09/23/24 09/25/24
00:09 04:48
BUN 41 H 20
Creatinine 1.5 H 1.1
Estimated Creat Clear 70
Albumin 4.0
09/23/24 09/23/24
00:09 02:26
Lactic Acid 1.9 1.4
Microbiology Results
09/23/24 02:26 Blood Culture - Preliminary
Blood/Venous No Growth in 48 hours- Final report to follow
09/23/24 00:09 Blood Culture - Preliminary
Blood/Venous No Growth in 48 hours- Final report to follow
09/23/24 06:22 Body Fluid Culture - Preliminary
Cyst Gram Stain - Preliminary
Therapeutic Drug Monitoring
Random Vancomycin 10.4 ug/ml 09/25/24 04:48
[2024-09-25] MEDS: VANCOCIN 275 MG IV ×2 (10:45→18:15)
[2024-09-25] MEDS: TYLENOL 1000 MG PO (11:37)
--- NOTE | 2024-09-25 13:13 | PTCARENOTE ---
Patient AAOx3, VSS. Drain CDI with minimal output. Patient c/o aggravating pain in back of head. MD notified. Patient using warm compress to back of neck with some relief as well as PRNs, see mar. Patient making needs known. Will continue to closely
monitor.
--- NOTE | 2024-09-25 15:37 | W.PN.HOSP.TC ---
Addendum entered and electronically signed by Endy Llanos MD 09/25/24 15:42:
stop the zosyn. continue vanc
Original Note:
Today's Communication/Plan
-
Await culture data
Sensitivities
IV antibiotics
Assessment / Plan
Assessment / Plan
NAD
Scleral Anicteric
MMM
No JVD
CTABL
RRR, S1/S2
Soft, NT, ND, BS+
Warm, Dry
-Left inner thigh with drain that is draining serosanguineous fluid. Incision line looks like it is healing without erythema drainage tenderness
AAOx3
Calm
Sepsis/septic shock s/p 30 cc/kg. Unclear as to source. Recently treated for cellulitis with abscess of the left lower extremity s/p IR drain with serosanguineous fluid. Remain refractory now on Levophed. Continue broad-spectrum IV antibiotics
with Zosyn and vancomycin. Follow vancomycin trough levels/dose per pharmacy. Wound culture moderate/few gram-positive cocci - Streptococcus and coag negative staph. Await sensitivities de-escalate antibiotics as able can likely de-escalate to
Rocephin from Vanco Zosyn and await sensitivities. Blood cultures no growth to date. ID following
SAURAV versus CKD, do not have a baseline, potentially ischemic ATN, will check renal bladder ultrasound and urine studies avoid any nephrotoxins hypotension
Neck pain likely muscle spasm in the setting of nausea vomiting. He does have a headache however low clinical suspicion for meningitis at this time as there is no evidence of meningismus.
Continue Flexeril increased dose as needed start oxycodone. -Improved significantly on this combination
If still with discomfort then initiate Valium low-dose.
Hyponatremia, resolved
Anticipated Discharge: 24 - 48 hours
Subjective/Interval History
-
Date of Service: September 25, 2024
Seen and examined. No new complaints. No acute overnight events.
Objective Data
-
Labs:
Laboratory Results
09/25/24
04:48
WBC 4.2 L
Hgb 12.1 L
Hct 35.7 L
Plt Count 145
Sodium 137
Potassium 4.4
Chloride 102
Carbon Dioxide 26
BUN 20
Creatinine 1.1
Glucose 87
Calcium 8.8
Vital Signs:
Vital Signs
Temp Pulse Resp BP Pulse Ox
98.6 F 69 15 124/88 98
09/25/24 14:35 09/25/24 15:00 09/25/24 15:00 09/25/24 15:00 09/25/24 08:00
I&O
09/24/24 09/25/24 09/26/24
06:59 06:59 06:59
Intake Total 500 / 500 540 / 540
Output Total 1000 / 1000 1930 / 1930 800 / 800
Balance -500 / -500 -1390 / -1390 -800 / -800
[2024-09-25] MEDS: LOVENOX 40 MG SC (18:14)
--- NOTE | 2024-09-25 19:55 | PTCARENOTE ---
Pt had no complaints at this time. head pain is managed a this time. Assessment care and vitals as charted. Call rubio within reach
[2024-09-26] VITALS (7 sets, daily range): BP systolic 102–132; BP diastolic 69–93
[2024-09-26] MEDS: VANCOCIN 275 MG IV (05:47)
[2024-09-26] MEDS: MOTRIN 600 MG PO (06:50)
--- NOTE | 2024-09-26 09:11 | W.PN.HOSP.TC ---
Today's Communication/Plan
-
Possible discharge today if cleared by ID
Assessment / Plan
Assessment / Plan
1. Sepsis
Septic shock -resolved
Suspected left thigh surgical site infection versus other
-Reason stay patient required IV fluid boluses/vasopressor support
-Initially left thigh melanoma resection site subcutaneous collection was felt to be the source, growing Streptococcus and coagulase-negative Staphylococcus
-Patient was maintained on broad-spectrum IV vancomycin and Zosyn now de-escalated to IV vancomycin only
-Blood culture negative till date.
-Although could not be confirmed left thigh collection as a source no other clear infection source either.
-ID following and help appreciated
-Patient is planning to follow-up with [facility] later in the week to have JUSTYN drain removed and likely starting Keytruda next Thursday
2. SAURAV
-No baseline to compare with
-Cause of SAURAV likely Hypotension/prerenal in nature
-Admission creatinine of 1.5, now resolved to 1.1
3. Nausea and vomiting
-Related to SAURAV?, Resolved at this point
-Continue symptomatic care
5. Neck pain
-Patient have known cervical DJD and related pain/spasm issues
-Patient intending to have it evaluated by spinal/orthopedic surgeon eventually
-Maintain on Tylenol therapy
6. Hyponatremia
-resolved
DVT PPX -Lovenox
Full code
More than 30 minutes spent in discharge including
Final examination of the patient
Summarizing hospital stay
Instructions for continuing care to all relevant caregivers
Preparation of discharge records, prescriptions, and referral forms
Total time spent (in minutes): 38 mins
Anticipated Discharge: Today
Subjective/Interval History
-
Date of Service: September 26, 2024
Patient resting comfortably in bed
Afebrile overnight
Left thigh erythema much improved
no reported n/v
Objective Data
-
Labs:
Laboratory Results
09/26/24
09:06
WBC Pending
Hgb Pending
Hct Pending
Plt Count Pending
Sodium Pending
Potassium Pending
Chloride Pending
Carbon Dioxide Pending
BUN Pending
Creatinine Pending
Glucose Pending
Calcium Pending
Vital Signs:
Vital Signs
Temp Pulse Resp BP Pulse Ox
98 F 71 16 132/87 98
09/26/24 03:27 09/26/24 06:01 09/25/24 22:00 09/26/24 06:01 09/25/24 20:00
I&O
09/25/24 09/26/24 09/27/24
06:59 06:59 06:59
Intake Total 540 / 540 480 / 480
Output Total 1930 / 1930 2200 / 2200
Balance -1390 / -1390 -1720 / -1720
Review of Systems
-
Respiratory: Reports No Symptoms
Cardiac: Reports No Symptoms
Abdomen/GI: Reports No Symptoms
Physical Exam
-
General: No Apparent Distress and Comfortable
HEENT: Negative Oxygen
Respiratory: Clear to Auscultation
Cardiac: Regular Rhythm and S1/S2; Negative Murmur or Rub
Musculoskeletal: No Edema
Skin: Other (Left mid thigh JUSTYN drain, draining serous purulent drainage)
Neuro: Awake, Alert, Oriented, No Motor Deficits and Nonfocal/Grossly Intact
Psych: Calm
--- NOTE | 2024-09-26 10:04 | W.PN.ID1 ---
Addendum entered and electronically signed by Chung Cates, 09/26/24 10:46:
I saw and evaluated the patient. I reviewed the resident�s note and agree with findings and plan as documented in the resident�s note.
Original Note:
Date of Service
Date of Service: September 26, 2024
Today's Communication
Discontinue Vanc and zosyn
Switch to Keflex 500 mg q6 for 5 more days
Assessment / Plan
Fever with chills and rigors - resolved
Septic Shock - resolved
Melanoma of left thigh
-s/p resection (Jun 2024)
Plan
Although drain could the source does not appear actively infected.
Drain culture with streptococcus and coag neg staph
Discontinue Zosyn and vanc.
Transition to Keflex 500 mg q6 for 5 more days.
Chief Complaint
-: Fever
Subjective / Review of Systems
Review of Systems: No Fever, No Chills, Headache (mild posterior ) and Other
Vital Signs / Physical Exam
Vital Signs
Vital Signs
Temp Pulse Resp BP Pulse Ox
98.2 F 71 16 132/87 98
09/26/24 07:11 09/26/24 06:01 09/25/24 22:00 09/26/24 06:01 09/25/24 20:00
Physical Exam
Constitutional: No Acute Distress
Eyes: Pupils Equal
Cardiovascular: Regular Rate and S1/S2; Negative Murmur or Rub
Pulmonary: Clear
Gastrointestinal: Soft, Non Tender and Non Distended
Skin: Warm and Dry
Neurological: AO x 3
Lines: Other (drain with serous fluid, no surrounding erythema or edema, no warmth or tenderness, minimal induration around the suture site. )
Objective Data
Lab Data
Lab Results
09/26/24 09:06
Estimated Creat Clear Cancelled 09/26/24 09:06
Lactic Acid 1.4 mmol/L (0.7-2.0) 09/23/24 02:26
Total Bilirubin 0.9 mg/dl (0.2-1.3) 09/23/24 00:09
AST 35 U/L (17-59) 09/23/24 00:09
ALT 39 U/L (0-50) 09/23/24 00:09
Alkaline Phosphatase 64 U/L (38-126) 09/23/24 00:09
Most recent labs reviewed.
Micro Results:
09/23/24 02:26 Blood Culture - Preliminary
Blood/Venous No Growth in 72 hours- Final report to follow
09/23/24 00:09 Blood Culture - Preliminary
Blood/Venous No Growth in 72 hours- Final report to follow
09/23/24 06:22 Body Fluid Culture - Final
Cyst Streptococcus species
Coagulase neg. staphylococcus
Gram Stain - Final
09/23/24 14:48 MRSA Screen - Final
Nose No Methicillin Resistant Staphylococcus aureus isolated.
09/23/24 02:26 Influenza Types A & B ([facility]) - Final
Nasal Swab Negative for Influenza A & B, NAAT
Negative results must be combined with clinical observations
and patient history.
Nucleic Acid Amplification test (NAAT)performed on the
[employer] platform.
Imaging
Lower extremity CT scan 09/23/24- mild surrounding edema in left thigh with abnormal collection in percutaneous drain.
Chest x ray 09/23/24- No acute cardiopulmonary abnormality.
Care Review
Plan reviewed with: Physician
Total Time Spent with Patient (in minutes): hospitalist
[2024-09-26 10:45] LABS: Hematocrit 38.7 % (39.0-52.0); Hemoglobin 13.2 g/dL (13.0-18.0); Mean Corp Hgb Conc. 34.1 g/dL (33.0-37.0); Mean Corpuscular Hgb 31.7 pg (27.0-31.0); Mean Corpuscular Volume 92.8 fL (80.0-94.0); Mean Platelet Volume 9.5 fL (7.4-10.4); Platelet Count 181 10^3/uL (130-400); Red Blood Cell Count 4.17 10^6/uL (4.70-6.10); Red Cell Dist. Width 13.2 % (11.5-14.5)
--- NOTE | 2024-09-26 11:55 | PTCARENOTE ---
Addendum entered by Brendan Heredia RN 09/26/24 13:52:
DC paperwork reviewed with patient and . All questions answered. Patient states he has everything he needs for his drain to manage at home and has follow up appointment scheduled with surgeon. IV removed.
Original Note:
Patient AAOx3. Still c/o headache to back of head, see PRNs. VSS. Drain CDI with minimal serous output. Possible DC or downgrade today. Will closely monitor.
[2024-09-26] MEDS: TYLENOL 1000 MG PO (12:26)
[2024-09-26] MEDS: FLEXERIL 10 MG PO (12:26)
--- NOTE | 2024-09-26 14:55 | CM ---
Patient with Hx skin melanoma s/p resection with recent skin cellulitis and abscess/seroma requiring drain, with Dx sepsis. Room air. Per nurse; JUSTYN drain left thigh.
Informed by nurse Brendan that she discharged patient to home today, and that patient did not want to wait to be seen by CM (therefore IMM could not be completed). Per nurse, patient has been doing his own drain care since prior to admission.
Phone call to patient on his cell; left message offering to set him up with VN if he wants nurse at home- no callback.
Plan home today.
--- NOTE | 2024-09-27 16:08 | W.DCSUMMARY ---
Discharge Summary
Discharge Data
Date of Admission: 09/23/24
Date of Discharge: 09/26/24
-
Pending Results: No
Hospital Course
Discharging Physician : Dr Deshawn Llanos
Disposition : To home
Primary care physician : Unknown
Principal Discharge diagnosis :
Sepsis and septic shock
Presumed left thigh surgical site infection
Acute kidney injury
Nausea and vomiting
Hyponatremia
Chronic Discharge diagnosis :
History of melanoma s/p resection July 05
Chronic neck pain
Cervical spine degenerative joint disease
Hospital Course :
Patient is a 69-year-old male with above-mentioned past medical history came to ER for having new onset of left thigh surgical site erythema. Patient have history of melanoma with resection at [facility] in July 05. Last month in August
patient was noted to having cyst in left thigh which was drained and patient was sent on oral antibiotics. Patient had recurrence of symptoms and required to be readmitted at [facility] with placement of JUSTYN drain. Patient was discharged this time
home with JUSTYN drain in place. 2 days back patient noticed that patient having worsening redness around the JUSTYN drain site and went to [facility], ER although due to prolonged wait patient drove himself to ER. In our ER on CT scan patient was found
to have fluid collection with JUSTYN drain in place. Patient was septic with elevated white blood cell count and patient being febrile. Patient was also hypotensive and required brief vasopressor support . patient was started on broad-spectrum
antibiotic with concern of fluid collection being infected. Infection disease doctor were involved in care and drain fluid was cultured which later grew Streptococcus species and coagulase-negative Staphylococcus. No other clear infection source
found. ID did not feel strongly of fluid being infected although no other source found, after improvement clinically patient was discharged on 5 days of cephalexin course. Patient have an upcoming follow-up visit with [facility]
physician next week.
Associated with this patient had some renal dysfunction/hyponatremia which resolved after improvement of shock state. Patient had minimal hyponatremia as well which did not require any further treatment.
Important imaging findings :
None
Procedure findings :
None
Discharge Plan
-
Patient Disposition: Home (Routine Discharge)
Discharge Diagnosis/Procedures: Right upper extremity cellulitis
Condition: Good
Diet: As tolerated
Activity: As tolerated
Activity Restrictions/Additional Instructions:
Follow up with primary surgeon/oncologist at [facility].
Referrals:
NONE,* [Family Provider] -
Prescriptions:
New
cephalexin 500 mg capsule
500 mg PO Q6H 5 Days Qty: 20 0RF
Continued
therapeutic multivitamin Tablet
1 tab PO DAILY
ibuprofen [Advil] 200 mg Tablet
400 mg PO DAILYPRN PRN (Reason: mild pain)
Discharge Orders:
Discharge Patient (As Directed); Ordered 09/26/24
Ordered By: Deshawn Llanos
Discharge Date and Time
Discharge Date/Time: 09/26/24 13:42
Print Language: NIGERIAN
== END 2024-09-26 13:42 | disposition home or self-care (01) | DRG 862 ==
LOC: IMU 06:31
PROVIDERS: Hospitalist; Student in an Organized Health Care Education/Training Program; ADMITTING PHYSICIAN Internal Medicine; ATTENDING PHYSICIAN Hospitalist; EMERGENCY PHYSICIAN Emergency Medicine; OTHER PHYSICIAN Internal Medicine Infectious Disease; OTHER PHYSICIAN Surgery
DX: T81.41XA Infection following a procedure, superficial incisional surgical site, initial encounter (principal); A41.9 Sepsis, unspecified organism; R65.21 Severe sepsis with septic shock; L03.113 Cellulitis of right upper limb; N17.9 Acute kidney failure, unspecified; E87.1 Hypo-osmolality and hyponatremia; C77.4 Secondary and unspecified malignant neoplasm of inguinal and lower limb lymph nodes; N40.1 Benign prostatic hyperplasia with lower urinary tract symptoms; R35.0 Frequency of micturition; C43.72 Malignant melanoma of left lower limb, including hip; B95.5 Unspecified streptococcus as the cause of diseases classified elsewhere; B95.7 Other staphylococcus as the cause of diseases classified elsewhere; R11.2 Nausea with vomiting, unspecified; M54.2 Cervicalgia; G89.29 Other chronic pain; Z11.52 Encounter for screening for COVID-19
CPT/HCPCS: 71046; 73701; 76770; 80048; 80053; 80202; 81003; 81015; 82570; 83605; 84156; 84300; 85025; 85027; 87015; 87040; 87070; 87077; 87147; 87205; 87502; 87811; 89051; 96361; 96365; 96366; 96367; 96375; 99285; Q9967